=== PATIENT | female | born 1965 | race Caucasian/White ===

== ENCOUNTER 2016-06-15 12:10 | Emergency (ER) | payer MEDICARE, OTHER ==
[~2016-06-15] VITALS: Ht 175.3 cm; Wt 67.0 kg
[~2016-06-15 12:10] MED LIST: ASPI81TA11 PO; GABA100C4 PO; PANT40TA3 PO; TRAM50TA PO
[2016-06-15 12:18] VITALS: BP 159/78; PULSE 74; RESP 22; TEMP 98.3; O2SAT 99
[2016-06-15] MEDS ORDERED: LORazepam 2 MG/ML VIAL IV PUSH ONE (13:15)
[2016-06-15] MEDS ORDERED: ONDANSETRON HCL 4 MG/2 ML VIAL IV ONE (13:15)
[2016-06-15] MEDS ORDERED: SODIUM CHLOR 0.9% 1000 ML INJ 1,000 ML IV ONE (13:15)
--- NOTE | 2016-06-15 13:42 | PD ---
HPI Chief Complaint: Seizure Time Seen by Provider: 13:08 Travel History International Travel<30 days: No Contact w/Intl Traveler<30days: No Traveled to known affect area: No History of Present Illness HPI This patient presents by paramedics. She reports that she had a seizure last night. Followed by multiple episodes of vomiting during the night and this morning. She felt weak and lightheaded this morning. She is not having pain and was no injury. She's been taking Neurontin for the last 2 months and had a extensive admission for seizure workup 2 months ago. She is a heavy alcohol drinker trying to cut back. She drank several drinks yesterday morning. Denies drug use. She says that her boyfriend thought she had a seizure because her hands were shaking and her eyes were twitching. She doesn't recall the event. This is the first time since her March admission she's had a seizure. Symptoms severity is moderate. No alleviating factors. Duration of the event was about a minute PFSH Past Medical History Hx Anticoagulant Therapy: Yes (PT HAS RX FOR ASPIRIN BUT IS UNAWARE OF DOSE) Cancer: No Cardiovascular Problems: No Diabetes: No Diminished Hearing: No Endocrine: No Gastrointestinal Disorders: No GERD: No Genitourinary: No Hepatitis: No Hiatal Hernia: No Hypertension: No (PATIENT DENIES ) Immune Disorder: No Medical other: No Musculoskeletal: Yes (LEGS ARE PAINFUL WHEN WALKING FROM PRESSURE ON NECK) Neurologic: Yes (NERVE PAIN FROM NECK INTO SHOULDERS AND BACK; ) Psychiatric: No Reproductive: No Respiratory: No Seizures: Yes Thyroid Disease: No ?: Not Menopausal: Yes Past Surgical History AICD: No Body Medical Devices: NONE Joint Replacement: No Neurologic Surgery: Yes (C2-C3 SPINAL FUSION) Pacemaker: No Other Surgery: Yes Social History Alcohol Use: Yes Tobacco Use: Yes Substance Use: No Allergies-Medications (Allergen,Severity, Reaction): Coded Allergies: No Known Allergies (Unverified , 06/15/16) Reported Meds & Prescriptions Reported Meds & Active Scripts Active Pantoprazole (Pantoprazole Sodium) 40 Mg Tab 40 Mg PO DAILY Gabapentin 100 Mg Cap 300 Mg PO BID Aspirin EC (Aspirin) 81 Mg Tabdr 81 Mg PO DAILY Review of Systems General / Constitutional: No: Fever Eyes: No: Visual changes HENT: No: Headaches Cardiovascular: No: Chest Pain or Discomfort Respiratory: No: Shortness of Breath Gastrointestinal: Positive: Nausea, Vomiting, No: Abdominal Pain Genitourinary: No: Dysuria Musculoskeletal: No: Pain Skin: No Rash Neurologic: Positive: Weakness, Dizziness, Seizures Psychiatric: Positive: Substance Abuse, No: Depression Endocrine: No: Polydipsia Hematologic/Lymphatic: No: Easy Bruising Physical Exam Narrative GENERAL: Disheveled well-developed patient in no apparent distress. SKIN: Warm and dry. HEAD: Atraumatic. Normocephalic. EYES: Pupils equal and round. No scleral icterus. No injection or drainage. ENT: No nasal bleeding or discharge. Mucous membranes pink and moist. No tongue injury NECK: Trachea midline. No JVD. CARDIOVASCULAR: Regular rate and rhythm. No murmur appreciated. RESPIRATORY: No accessory muscle use. Clear to auscultation. Breath sounds equal bilaterally. GASTROINTESTINAL: Abdomen soft, non-tender, nondistended. Hepatic and splenic margins not palpable. MUSCULOSKELETAL: No obvious deformities. No clubbing. No cyanosis. No edema. NEUROLOGICAL: Awake and alert. No obvious cranial nerve deficits. Motor grossly within normal limits. Normal speech. PSYCHIATRIC: Anxious mood and affect; insight and judgment reduced. Data Data Last Documented VS Vital Signs Date Time Temp Pulse Resp B/P Pulse Ox O2 Delivery O2 Flow Rate FiO2 06/15/16 14:00 73 18 140/69 98 Room Air 06/15/16 12:18 98.3 Orders Ondansetron Inj (Zofran Inj) (06/15/16 13:15) Sodium Chlor 0.9% 1000 Ml Inj (Ns 1000 M (06/15/16 13:15) Lorazepam Inj (Ativan Inj) (06/15/16 13:15) Complete Blood Count With Diff (06/15/16 13:14) Basic Metabolic Panel (Bmp) (06/15/16 13:14) Alcohol (Ethanol) (06/15/16 13:14) Potassium Bicarb Eff (Effer-K Eff) (06/15/16 15:45) Labs Laboratory Tests Test 06/15/16 13:30 White Blood Count 5.3 TH/MM3 Red Blood Count 3.93 MIL/MM3 Hemoglobin 13.1 GM/DL Hematocrit 38.7 % Mean Corpuscular Volume 98.5 FL Mean Corpuscular Hemoglobin 33.4 PG Mean Corpuscular Hemoglobin 33.9 % Concent Red Cell Distribution Width 15.6 % Platelet Count 71 TH/MM3 Mean Platelet Volume 9.4 FL Neutrophils (%) (Auto) 83.7 % Lymphocytes (%) (Auto) 10.8 % Monocytes (%) (Auto) 4.9 % Eosinophils (%) (Auto) 0.1 % Basophils (%) (Auto) 0.5 % Neutrophils # (Auto) 4.5 TH/MM3 Lymphocytes # (Auto) 0.6 TH/MM3 Monocytes # (Auto) 0.3 TH/MM3 Eosinophils # (Auto) 0.0 TH/MM3 Basophils # (Auto) 0.0 TH/MM3 CBC Comment AUTO DIFF Differential Comment AUTO DIFF CONFIRMED Platelet Estimate LOW Platelet Morphology Comment NORMAL Sodium Level 136 MEQ/L Potassium Level 3.0 MEQ/L Chloride Level 97 MEQ/L Carbon Dioxide Level 31.8 MEQ/L Anion Gap 7 MEQ/L Blood Urea Nitrogen 6 MG/DL Creatinine 0.60 MG/DL Estimat Glomerular Filtration 105 ML/MIN Rate Random Glucose 108 MG/DL Calcium Level 9.0 MG/DL Ethyl Alcohol Level 5 MG/DL [facility] Medical Decision Making Medical Screen Exam Complete: Yes Emergency Medical Condition: Yes Medical Record Reviewed: Yes Differential Diagnosis Breakthrough seizure, tremor, anxiety, alcohol withdrawal Narrative Course I have reviewed the patient's electronic medical record. Reviewed her seizure workup from 2 months ago including EEG and MRI, both normal IV placed I gave her dose of IV Zofran and 1 mg IV Ativan and 1 L normal saline IV CBC is normal Metabolic profile shows hypokalemia of 3.0 which I replaced orally with 50 mEq Alcohol level is negative I don't see any acute neurologic deficit. Unknown whether she had a true seizure or not. I have observed her for several hours and is been no recurrence She will continue her Neurontin and she says she has a neurologist appointment for tomorrow coincidentally Diagnosis Primary Impression: Seizure Additional Instructions: Continue Neurontin Follow-up with neurologist as scheduled Avoid driving or swimming Med/Other Pt SpecificInfo: Other Disposition: 01 DISCHARGE HOME Condition: Stable Artur Branch MD Jun 15, 2016 13:42
[2016-06-15 13:59] LABS: AUTOMATED NEUTROPHIL # 4.5 TH/MM3 (1.8-7.7); BASOPHIL % 0.5 % (0.0-2.0); EOSINOPHIL % 0.1 % (0.0-4.0); HEMATOCRIT 38.7 % (35.0-46.0); LYMPH % 10.8 % (9.0-44.0); LYMPHOCYTE # 0.6 TH/MM3 (1.0-4.8); MEAN CELL VOLUME 98.5 FL (80.0-100.0); MEAN CORPUSCULAR HEMOGLOBIN 33.4 PG (27.0-34.0); MEAN CORPUSCULAR HGB CONC 33.9 % (32.0-36.0); MONO % 4.9 % (0.0-8.0); NEUT % 83.7 % (16.0-70.0); PLATELET COUNT 71 TH/MM3 (150-450); RED BLOOD COUNT 3.93 MIL/MM3 (4.00-5.30); RED CELL DISTRIBUTION WIDTH 15.6 % (11.6-17.2); WHITE BLOOD COUNT 5.3 TH/MM3 (4.0-11.0)
[2016-06-15 14:00] VITALS: BP 140/69; PULSE 73; RESP 18; O2SAT 98
[2016-06-15 14:01] LABS: HEMO FLAGS AUTO DIFF
[2016-06-15 14:13] LABS: BICARBONATE 31.8 MEQ/L (21.0-32.0)
[2016-06-15 14:51] LABS: PLATELET ESTIMATE SMEAR LOW (NORMAL)
[2016-06-15 14:52] LABS: PLATELET MORPHOLOGY NORMAL (NORMAL); SCAN/DIFF AUTO DIFF CONFIRMED
[2016-06-15] MEDS ORDERED: POTASSIUM BICARBONATE 25 MEQ EFFERVESCENT TAB PO ONE (15:45)
== END 2016-06-15 18:14 | disposition home or self-care (01) ==
LOC: NEPA 12:10
DX: R56.9 Unspecified convulsions (principal)
CPT/HCPCS: 80048; 80320; 85025; 96374; 96375; 99284; J2060; J2405; J7030

== ENCOUNTER → 2016-06-16 | Outpatient (CLI) | payer MEDICARE, OTHER ==
[~2016-06-16] MED LIST changes: -TRAM50TA PO
--- NOTE | 2016-06-16 11:20 | MG ---
cc: VICTORINO ROSE M.D. Lab No: [id number] Date: 06/16/2016 Age: 51 Sex: F Race: DATE OF 1965 AGE [age] years old. EEG NUMBER [id number] REFERRING PHYSICIAN MD Nikolay NOTE Outpatient. Hyperventilation and photic stimulation done with good hypoventilatory effort. EEG is awake. Last one 04/05/2016 showed normal findings. Last meal at 11:00 p.m. last night. Caffeine this morning at 8 o'clock. Back pain listed as 10. Last seizure was 06/13/2016. She is a 51-year-old woman with history of seizures, C2-3 spinal fusion, head trauma. Uses caffeine and tobacco. Has had some falls. MEDICATIONS 1. Gabapentin. 2. Hydrocodone. DESCRIPTION OF RECORD The patient has an overall normal alpha rhythm of 9 Hz, 20 microvolts. Photic stimulation was performed at the beginning of the recording with a normal driving response. Hyperventilation is done after that. There is no evidence of any attenuation. Some minor artifact, no epileptiform features. IMPRESSION Normal EEG. No evidence of any epileptiform features in this one recording. Clinical correlation. MD KATIA Coleman/DAMARIS /11:05 AM /11:11 AM
== END ==
LOC: HEEG 09:27
PROVIDERS: ATTEND Psychiatry & Neurology Neurology
DX: G40.909 Epilepsy, unspecified, not intractable, without status epilepticus (principal)
CPT/HCPCS: 95819

== ENCOUNTER 2016-10-17 04:04 | Emergency (ER) | payer MEDICARE, OTHER ==
[~2016-10-17] VITALS: Ht 175.3 cm; Wt 68.0 kg
--- NOTE | 2016-10-17 04:24 | PD ---
HPI Chief Complaint: edema Time Seen by Provider: 04:16 Travel History International Travel<30 days: No Contact w/Intl Traveler<30days: No Traveled to known affect area: No History of Present Illness HPI The patient is a 51-year-old female who presents to the emergency department for abdominal swelling and lower extremity edema. The patient notes a 2 week history of lower extremity edema which is progressively worsened. She now notes increasing abdominal distention with mild pain and discomfort. The patient does have a history of alcohol use, states she drinks 3 beers daily for the last 8 years, denies any known history of cirrhosis or liver failure. The patient does note one previous episode of lower extremity pitting edema which resolved on its own. She denies any acute shortness of breath or chest pain, does note mild pain with lying supine secondary to osteoarthritis. The patient did see her primary physician, Dr. Baez, who stated she had pitting edema, but gave no further explanation according to the patient. The patient's symptoms are moderate, possibly exacerbated by chronic alcohol use, there are no current alleviating factors. She denies any current fever, chills, or sweats. PFSH Past Medical History Hx Anticoagulant Therapy: Yes (PT HAS RX FOR ASPIRIN BUT IS UNAWARE OF DOSE) Cancer: No Cardiovascular Problems: No Diabetes: No Diminished Hearing: No Endocrine: No Gastrointestinal Disorders: No GERD: No Genitourinary: No Hepatitis: No Hiatal Hernia: No Hypertension: No (PATIENT DENIES ) Immune Disorder: No Musculoskeletal: Yes (LEGS ARE PAINFUL WHEN WALKING FROM PRESSURE ON NECK) Neurologic: Yes (NERVE PAIN FROM NECK INTO SHOULDERS AND BACK; ) Psychiatric: No Reproductive: No Respiratory: No Seizures: Yes Thyroid Disease: No Menopausal: Yes Past Surgical History AICD: No Body Medical Devices: NONE Joint Replacement: No Neurologic Surgery: Yes (C2-C3 SPINAL FUSION) Pacemaker: No Other Surgery: Yes Social History Alcohol Use: Yes Tobacco Use: Yes Substance Use: No Allergies-Medications (Allergen,Severity, Reaction): Coded Allergies: No Known Allergies (Unverified , 06/15/16) Reported Meds & Prescriptions Reported Meds & Active Scripts Active Pantoprazole (Pantoprazole Sodium) 40 Mg Tab 40 Mg PO DAILY Gabapentin 100 Mg Cap 300 Mg PO BID Aspirin EC (Aspirin) 81 Mg Tabdr 81 Mg PO DAILY Review of Systems Except as stated in HPI: all other systems reviewed are Neg General / Constitutional: No: Fever, Chills Cardiovascular: No: Chest Pain or Discomfort Respiratory: No: Shortness of Breath, Orthopnea Gastrointestinal: Positive: Abdominal Pain, No: Nausea, Vomiting Genitourinary: No: Dysuria, Decreased Urinary Output Musculoskeletal: Positive: Edema, Pain Physical Exam Narrative GENERAL: Awake, alert, pleasant 51-year-old female who appears her stated age and is in no acute respiratory distress. SKIN: Focused skin assessment warm/dry. Telangiectasias noted over the anterior chest wall. HEAD: Atraumatic. Normocephalic. EYES: Pupils equal and round. Mild icterus noted. ENT: No nasal bleeding or discharge. Fetor hepaticus. NECK: Trachea midline. No JVD. CARDIOVASCULAR: Regular rate and rhythm. No murmur appreciated. RESPIRATORY: No accessory muscle use. Clear to auscultation. Breath sounds equal bilaterally. GASTROINTESTINAL: Abdomen has a positive fluid wave. Mild caput medusa noted. MUSCULOSKELETAL: Bilateral lower extremity pitting edema. NEUROLOGICAL: Awake and alert. No obvious cranial nerve deficits. Motor grossly within normal limits. Normal speech. Nonfocal. Oriented 4. PSYCHIATRIC: Appropriate mood and affect; insight and judgment normal. Data Data Last Documented VS Vital Signs Date Time Temp Pulse Resp B/P Pulse Ox O2 Delivery O2 Flow Rate FiO2 10/17/16 04:32 98.9 88 20 117/64 99 Orders Complete Blood Count With Diff (10/17/16 04:17) Comprehensive Metabolic Panel (10/17/16 04:17) Prothrombin Time / Inr (Pt) (10/17/16 04:17) Act Partial Throm Time (Ptt) (10/17/16 04:17) Iv Access Insert/Monitor (10/17/16 04:17) Ecg Monitoring (10/17/16 04:17) Oximetry (10/17/16 04:17) Morphine Inj (Morphine Inj) (10/17/16 04:30) Ondansetron Inj (Zofran Inj) (10/17/16 04:30) Sodium Chloride 0.9% Flush (Ns Flush) (10/17/16 04:30) Alcohol (Ethanol) (10/17/16 04:17) Furosemide Inj (Lasix Inj) (10/17/16 04:30) Labs Laboratory Tests Test 10/17/16 10/17/16 04:20 05:40 White Blood Count 8.8 TH/MM3 Red Blood Count 2.79 MIL/MM3 Hemoglobin 9.5 GM/DL Hematocrit 27.7 % Mean Corpuscular Volume 99.0 FL Mean Corpuscular Hemoglobin 34.0 PG Mean Corpuscular Hemoglobin 34.4 % Concent Red Cell Distribution Width 16.0 % Platelet Count 132 TH/MM3 Mean Platelet Volume 8.4 FL Neutrophils (%) (Auto) 55.0 % Lymphocytes (%) (Auto) 22.7 % Monocytes (%) (Auto) 10.2 % Eosinophils (%) (Auto) 8.7 % Basophils (%) (Auto) 3.4 % Neutrophils # (Auto) 4.8 TH/MM3 Lymphocytes # (Auto) 2.0 TH/MM3 Monocytes # (Auto) 0.9 TH/MM3 Eosinophils # (Auto) 0.8 TH/MM3 Basophils # (Auto) 0.3 TH/MM3 CBC Comment DIFF FINAL Differential Comment Sodium Level 138 MEQ/L Potassium Level 3.4 MEQ/L Chloride Level 102 MEQ/L Carbon Dioxide Level 28.7 MEQ/L Anion Gap 7 MEQ/L Blood Urea Nitrogen 2 MG/DL Creatinine 0.56 MG/DL Estimat Glomerular Filtration 113 ML/MIN Rate Random Glucose 104 MG/DL Calcium Level 8.3 MG/DL Total Bilirubin 3.3 MG/DL Aspartate Amino Transf 88 U/L (AST/SGOT) Alanine Aminotransferase 28 U/L (ALT/SGPT) Alkaline Phosphatase 101 U/L Total Protein 7.2 GM/DL Albumin 2.5 GM/DL Ethyl Alcohol Level 204 MG/DL Prothrombin Time 15.5 SEC Prothromb Time International 1.4 RATIO Ratio Activated Partial 35.7 SEC Thromboplast Time MDM Medical Decision Making Medical Screen Exam Complete: Yes Emergency Medical Condition: Yes Medical Record Reviewed: Yes Interpretation(s) Laboratory Tests Test 10/17/16 10/17/16 04:20 05:40 White Blood Count 8.8 TH/MM3 Red Blood Count 2.79 MIL/MM3 Hemoglobin 9.5 GM/DL Hematocrit 27.7 % Mean Corpuscular Volume 99.0 FL Mean Corpuscular Hemoglobin 34.0 PG Mean Corpuscular Hemoglobin 34.4 % Concent Red Cell Distribution Width 16.0 % Platelet Count 132 TH/MM3 Mean Platelet Volume 8.4 FL Neutrophils (%) (Auto) 55.0 % Lymphocytes (%) (Auto) 22.7 % Monocytes (%) (Auto) 10.2 % Eosinophils (%) (Auto) 8.7 % Basophils (%) (Auto) 3.4 % Neutrophils # (Auto) 4.8 TH/MM3 Lymphocytes # (Auto) 2.0 TH/MM3 Monocytes # (Auto) 0.9 TH/MM3 Eosinophils # (Auto) 0.8 TH/MM3 Basophils # (Auto) 0.3 TH/MM3 CBC Comment DIFF FINAL Differential Comment Sodium Level 138 MEQ/L Potassium Level 3.4 MEQ/L Chloride Level 102 MEQ/L Carbon Dioxide Level 28.7 MEQ/L Anion Gap 7 MEQ/L Blood Urea Nitrogen 2 MG/DL Creatinine 0.56 MG/DL Estimat Glomerular Filtration 113 ML/MIN Rate Random Glucose 104 MG/DL Calcium Level 8.3 MG/DL Total Bilirubin 3.3 MG/DL Aspartate Amino Transf 88 U/L (AST/SGOT) Alanine Aminotransferase 28 U/L (ALT/SGPT) Alkaline Phosphatase 101 U/L Total Protein 7.2 GM/DL Albumin 2.5 GM/DL Ethyl Alcohol Level 204 MG/DL Prothrombin Time 15.5 SEC Prothromb Time International 1.4 RATIO Ratio Activated Partial 35.7 SEC Thromboplast Time Differential Diagnosis Differential diagnosis includes cirrhosis, liver failure, ascites, hypoalbuminemia, hyponatremia, spontaneous bacterial peritonitis. Narrative Course IV was established, labs are drawn and sent, and the patient was placed on cardiac telemetry monitoring and continuous pulse oximetry monitoring. Bedside ultrasound was performed which reveals free fluid within the abdominal cavity consistent with ascites. The patient was administered Lasix 40 mg intravenously. Coags, platelet, and albumin were sent to lab. The patient's albumin level was 2.5. Bilirubin is elevated at 3.3. The patient is advised to follow-up with interventional radiology for outpatient ultrasound-guided therapeutic paracentesis. She is advised elevate her legs and wear compression stockings. Monitor her salt intake and limited fluid intake as needed. She is also advised to stop drinking alcohol and follow-up with her primary physician. Procedures Procedure Narrative Bedside ultrasound was performed with a curvilinear probe which reveals ascites in the abdominal cavity. The patient tolerated the procedure without difficulty and there was no obvious complications. 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 Stop drinking alcohol. Elevate legs. Compression stockings to both lower extremities. Monitor salt intake and fluid intake. Follow-up with a primary physician. Med/Other Pt SpecificInfo: No Change to Meds Disposition: 01 DISCHARGE HOME Condition: Stable Sylvester Frank MD Oct 17, 2016 04:24
[2016-10-17] MEDS ORDERED: SODIUM CHLORIDE 0.9% FLUSH 10 ML FLUSH IV FLUSH PRN (04:30)
[2016-10-17] MEDS ORDERED: MORPHINE SULFATE 4 MG/ML INJ IV PUSH ONE (04:30)
[2016-10-17] MEDS ORDERED: ONDANSETRON HCL 4 MG/2 ML VIAL IVP ONE (04:30)
[2016-10-17] MEDS ORDERED: FUROSEMIDE 40 MG/4 ML VIAL IV PUSH ONE (04:30)
[2016-10-17 04:32] VITALS: BP 117/64; PULSE 88; RESP 20; TEMP 98.9; O2SAT 99
[2016-10-17 04:47] LABS: AUTOMATED NEUTROPHIL # 4.8 TH/MM3 (1.8-7.7); BASOPHIL # 0.3 TH/MM3 (0-0.2); BASOPHIL % 3.4 % (0.0-2.0); EOSINOPHIL # 0.8 TH/MM3 (0-0.4); EOSINOPHIL % 8.7 % (0.0-4.0); HEMATOCRIT 27.7 % (35.0-46.0); HEMO FLAGS DIFF FINAL; LYMPH % 22.7 % (9.0-44.0); MEAN CORPUSCULAR HGB CONC 34.4 % (32.0-36.0); MONO % 10.2 % (0.0-8.0); PLATELET COUNT 132 TH/MM3 (150-450); RED BLOOD COUNT 2.79 MIL/MM3 (4.00-5.30); WHITE BLOOD COUNT 8.8 TH/MM3 (4.0-11.0)
[2016-10-17 05:04] LABS: ALT (GPT) 28 U/L (10-53); ANION GAP 7 MEQ/L (5-15); AST (GOT) 88 U/L (15-37); BICARBONATE 28.7 MEQ/L (21.0-32.0); BLOOD UREA NITROGEN 2 MG/DL (7-18); CHLORIDE 102 MEQ/L (98-107); GLOMERULAR FILTRATION RATE 113 ML/MIN (>89); POTASSIUM 3.4 MEQ/L (3.5-5.1); SODIUM (NA) 138 MEQ/L (136-145)
[2016-10-17 05:07] LABS: ALKALINE PHOSPHATASE 101 U/L (45-117); TOTAL BILIRUBIN ADULT 3.3 MG/DL (0.2-1.0)
[2016-10-17 06:18] LABS: APTT (PATIENT) 35.7 SEC (24.3-30.1); INTERNATIONAL NORMALIZED RATIO 1.4 RATIO; PROTHROMBIN TIME - PATIENT 15.5 SEC (9.8-11.6)
== END 2016-10-17 06:54 | disposition home or self-care (01) ==
LOC: NEPE 04:04
DX: R18.8 Other ascites (principal); R60.9 Edema, unspecified; Z79.82 Long term (current) use of aspirin; Z79.899 Other long term (current) drug therapy
CPT/HCPCS: 80053; 80307; 85025; 85610; 85730; 96374; 96375; 99285; J1940; J2270; J2405